=== PATIENT | male | born 1955 | race Hispanic/Latino ===

== ENCOUNTER 2018-06-26 09:09 | Emergency (ER) | payer OTHER, SELFPAY ==
[2018-06-26] MEDS ORDERED: Metoclopramide HCl 10 MG/2 ML VIAL ONE (10:06)
[2018-06-26] MEDS ORDERED: Meclizine HCl 25 MG TAB ONE (10:07)
[2018-06-26 10:15] LABS: #Basophils 0.1 thou/uL (0.0-0.2); #Eosinphils 0.3 thou/uL (0.0-0.7); #Lymphocytes 2.5 thou/uL (1.20-3.40); #Monocytes 0.8 thou/uL (0.11-0.59); #Neutrophils 5.5 thou/uL (1.40-6.50); %Basophils 0.8 % (0.0-1.0); %Eosinophils 3.4 % (0.0-10.0); %Lymphocytes 27.5 % (21.0-51.0); %Monocytes 8.9 % (0.0-10.0); %Neutrophils 59.5 % (42.0-75.0); Hemoglobin 13.1 g/dL (14.0-18.0); Mean Corpuscular HGB CONC 34.3 g/dL (32.0-36.0); Mean Corpuscular Hemoglobin 31.2 pg (27.0-31.0); Mean Corpuscular Volume 90.9 fL (78.0-98.0); Mean Platelet Volume 8.9 fL (7.4-10.4); Platelet Count 267 thou/uL (130-400); RBC Distribution Width 11.3 % (11.5-14.5); Red Blood Cell (RBC) Count 4.19 mill/uL (4.70-6.10); White Blood Cell (WBC) Count 9.2 thou/uL (4.8-10.8)
--- NOTE | 2018-06-26 10:18 | CT ---
CT BRAIN: Date: 06-26-18 Provided Clinical History: Dizziness, hypertension, trauma. FINDINGS: The ventricular system appears normal in size and morphology. There is no evidence for intracranial h emorrhage or mass effect. The extracranial soft tissues and osseous structures demonstrate an unremar kable CT appearance. IMPRESSION: No evidence for intracranial hemorrhage or mass effect. POS: [facility]
--- NOTE | 2018-06-26 10:28 | CT ---
CT CERVICAL SPINE WITHOUT CONTRAST: INDICATIONS: Posttraumatic pain. FINDINGS: There is no evidence of acute fracture or subluxation. Moderate multilevel degenerative change is pr esent. No craniocervical distraction injury. IMPRESSION: No acute osseous abnormality of the cervical spine. POS: C
[2018-06-26 10:35] LABS: ALT (SGPT) 27 U/L (8-55); AST (SGOT) 21 U/L (5-34); Alkaline Phosphatase 104 U/L (40-150); Anion Gap 12 mmol/L (10-20); BUN (Urea Nitrogen) 24 mg/dL (8.4-25.7); Bilirubin, Total 0.7 mg/dL (0.2-1.2); Calc. Creatinine Clearance 0 mL/min (70-130); Calcium 9.8 mg/dL (7.8-10.44); Carbon Dioxide 25 mmol/L (23-31); Chloride 104 mmol/L (98-107); Estimated GFR-MDRD 39; Globulin 2.8 g/dL (2.4-3.5); Glucose 343 mg/dL (80-115); Lipase 119 U/L (8-78); Protein, Total 6.8 g/dL (5.8-8.1); Sodium 137 mmol/L (136-145)
== END 2018-06-26 12:54 | disposition home or self-care (01) ==
LOC: ERS 09:09
DX: M54.2 Cervicalgia (principal); R51 Headache; Z79.84 Long term (current) use of oral hypoglycemic drugs; Z79.899 Other long term (current) drug therapy; V43.52XA Car driver injured in collision with other type car in traffic accident, initial encounter
CPT/HCPCS: 36415; 70450; 72125; 80053; 83690; 84484; 85025; 93005; 96361; 96374; J2765

== ENCOUNTER 2018-10-08 10:34 | Outpatient (CLI) | payer OTHER ==
--- NOTE | 2018-10-08 12:49 | RAD ---
EXAM: LUMBAR SPINE TWO VIEWS: 10/08/18 HISTORY: Disability exam. FINDINGS/IMPRESSION: Minimal disc degenerative changes and facet arthrosis. No acute fracture or dislocation. Evidence fo r lumbar spondylosis. POS: OFF
== END 2018-10-08 10:35 | disposition home or self-care (01) ==
LOC: BICRAD 10:34
PROVIDERS: ATTEND Internal Medicine
DX: Z02.71 Encounter for disability determination (principal); M47.816 Spondylosis without myelopathy or radiculopathy, lumbar region; M51.36 Other intervertebral disc degeneration, lumbar region; M46.96 Unspecified inflammatory spondylopathy, lumbar region
CPT/HCPCS: 72100